=== PATIENT | female | born 1960 | race Caucasian/White ===

== ENCOUNTER 2018-03-14 06:53 | Emergency (ER) | payer BC ==
[~2018-03-14] VITALS: Ht 165.1 cm; Wt 147.9 kg
[~2018-03-14 06:53] MED LIST: ALBU90OI INH; Ativan1 MG PO; BUPR100 PO; CALCIUM-MAGNES1 EAC1 PO; CHOL10002; CYCL10 PO; FERREX 28 TABL1 EACH PO; FLUO20 PO; FURO40 PO; FURO80 PO; K-Dur 20 meq T20 MEQ PO; Klor-Con 1010 MEQ PO; LORA1 PO; Lasix80 MG PO; METO25ER PO; MULVITB PO; NITR100CA PO; Nitrofurantoin100 M1 PO; OMEP20ER PO; Omeprazole20 M1 PO; SERT100 PO; SPACE CHAMBER1 EACH MC; SPIR50 PO; TRAZ100 PO; VALS80 PO; Zithromax250 MG PO
[2018-03-14 07:55] LABS: Calcium, Ionized (POC) 1.01 mmol/L (1.10-1.46); Chloride (POC) 99 mmol/L (98-108); Creatinine (POC) 1.2 mg/dL (0.6-1.0); Glucose (ISTAT POC) 128 mg/dL (70-99); Potassium (POC) 5.4 mmol/L (3.5-5.5); Sodium (POC) 133 mmol/L (135-148); Total CO2 (POC) 28 mmol/L (21-32)
[2018-03-14 08:14] LABS: Source, Urine Clean Catch
[2018-03-14 08:18] LABS: Bilirubin, Urine Neg (Neg); Blood, Urine 2+ (Neg); Glucose Qualitative, Urine Neg (Neg); Ketones, Urine Neg (Neg); Leukocyte Esterase, Urine 3+ (Neg); Nitrite, Urine Pos (Neg); Protein, Urine Neg (Neg); Urobilinogen, Urine 1+ (Normal); pH, Urine 6.5 (5.0-8.0)
[2018-03-14 08:25] LABS: Appearance, Urine Hazy (Clear); Color, Urine Yellow (P-Yellow)
[2018-03-14 08:28] LABS: Bacteria Many /hpf; Squamous Epithelial Cells Few /hpf (Few); White Blood Cells, Urine 50-100 /hpf (0-5)
[2018-03-14] MEDS ORDERED: Prednisone20 MG PO (08:47)
[2018-03-14] MEDS ORDERED: Macrobid 100 M100 MG PO (08:47)
== END 2018-03-14 08:59 | disposition home or self-care (01) ==
LOC: ER 06:53
PROVIDERS: Emergency Medicine
DX: L27.0 Generalized skin eruption due to drugs and medicaments taken internally (principal); N39.0 Urinary tract infection, site not specified; T36.1X5A Adverse effect of cephalosporins and other beta-lactam antibiotics, initial encounter; Z79.899 Other long term (current) drug therapy
CPT/HCPCS: 36415; 80047; 81001; 85014; 87077; 87086; 87186; 99283

== ENCOUNTER → 2019-05-08 | Outpatient (CLI) | payer BC ==
[~2019-05-08] MED LIST changes: +Macrobid 100 M100 MG PO; +Prednisone20 MG PO
== END | disposition home or self-care (01) ==
LOC: LAB 19:47 → LAB SHORT 19:47
DX: N39.0 Urinary tract infection, site not specified (principal)
CPT/HCPCS: 87086

== ENCOUNTER 2024-05-19 19:57 | Inpatient (IN) | payer OTHER ==
[~2024-05-19] VITALS: Ht 160 cm; Wt 157.2 kg
[~2024-05-19 19:57] MED LIST changes: +Enoxaparin 40 MG/0.4 ML SYR SC SCH; -K-Dur 20 meq T20 MEQ PO; +POTA10T PO
[2024-05-19] MEDS ORDERED: Ondansetron HCl 2 MG / ML 2ML Vial IV PRN (20:10)
[2024-05-19 20:57] LABS: Alanine Aminotransfer (ALT/SGP 729 U/L (12-78); Albumin, Blood 3.5 g/dL (3.4-5.0); Albumin/Globulin Ratio 0.8 (0.8-1.8); Alk Phos 251 U/L (50-136); Anion Gap 11 mmol/L (3-11); Aspartate Aminotrans (AST/SGOT 531 U/L (12-37); Bilirubin, Total 4.2 mg/dL (0.1-1.0); Blood Urea Nitrogen 21 mg/dL (8-24); Bun/Creatinine Ratio 16.8 (12.0-20.0); CO2, Blood 27 mmol/L (21-32); Calcium, Blood 9.7 mg/dL (8.5-10.1); Chloride, Blood 103 mmol/L (98-108); Creatinine, Blood 1.25 mg/dL (0.40-1.00); Globulin, Blood 4.4 g/dL (2.2-4.0); Glomerular Filtration Rate 48 (60-); Glucose, Blood 183 mg/dL (70-99); Potassium, Blood 4.1 mmol/L (3.5-5.5); Sodium, Blood 137 mmol/L (136-145); Total Protein, Blood 7.9 g/dL (6.4-8.2)
[2024-05-19 21:20] LABS: BASOPHILS ABSOLUTE AUTO 0.03 K/mm3 (0.00-0.23); BASOPHILS PERCENT AUTO 0 % (0-2); EOSINOPHILS ABSOLUTE AUTO 0.07 K/mm3 (0.00-0.68); EOSINOPHILS PERCENT AUTO 0 % (0-6); Hematocrit 42.5 % (33.0-51.0); Hemoglobin 13.6 g/dL (11.5-16.0); IMMATURE GRAN ABSOLUTE AUTO 0.14 K/mm3 (0.00-0.10); IMMATURE GRAN PERCENT AUTO 1 % (0-1); LYMPHOCYTES ABSOLUTE AUTO 0.76 K/mm3 (0.84-5.20); LYMPHOCYTES PERCENT AUTO 4 % (21-46); MONOCYTES PERCENT AUTO 4 % (4-13); Mean Corpuscular HGB 28.9 pg (26.0-34.0); Mean Corpuscular Volume 90 fL (80-100); NEUTROPHILS ABSOLUTE AUTO 17.85 K/mm3 (1.96-9.15); NEUTROPHILS PERCENT AUTO 91 % (41-73); Platelet Count 354 K/mm3 (150-400); RDW Coefficient Variation 14.3 % (11.7-14.2); RDW Standard Deviation 47.6 fL (35.1-46.3); Red Blood Cell Count 4.71 M/mm3 (3.80-5.20); White Blood Cell Count 19.65 K/mm3 (4.00-11.30)
[2024-05-19] MEDS ORDERED: MetroNIDAZOLE 500MG/NS 100 ml 100 ML IV ONE (22:05)
[2024-05-19] MEDS ORDERED: CefTRIAXone Sodium 2,000 MG in NS 50 ML IV ONE (22:05)
[2024-05-19] MEDS ORDERED: NS 1,000 ML IV SCH (22:05)
[2024-05-19] MEDS ORDERED: FentaNYL Citrate 50 MCG/ML 2 ML Injection IV ONE (22:15)
[2024-05-19 23:52] LABS: Source, Urine Clean Catch
[2024-05-19] MEDS ORDERED: HYDROmorphone HCl/Pf 1MG SYR IV ONE (23:55)
[2024-05-19 23:59] LABS: Bilirubin, Urine Neg (Neg); Blood, Urine 1+ (Neg); Glucose Qualitative, Urine Neg (Neg); Ketones, Urine Neg (Neg); Leukocyte Esterase, Urine 3+ (Neg); Nitrite, Urine Pos (Neg); Protein, Urine 1+ (Neg); Urobilinogen, Urine NORM (Normal); pH, Urine 6.5 (5.0-8.0)
[2024-05-20] VITALS (7 sets, daily range): BP systolic 100–181; BP diastolic 57–89
[2024-05-20] MEDS ORDERED: Ondansetron HCl 2 MG / ML 2ML Vial IV PRN ×2 (00:05→08:25)
[2024-05-20] MEDS ORDERED: NS 1,000 ML IV ONE (00:05)
[2024-05-20] MEDS ORDERED: FentaNYL Citrate 50 MCG/ML 2 ML Injection IV PRN ×2 (00:05→05:45)
[2024-05-20 00:24] LABS: Appearance, Urine Hazy (Clear); Color, Urine Yellow (P-Yellow)
[2024-05-20 00:25] LABS: Bacteria Mod /hpf; Red Blood Cells, Urine 0-2 /hpf (0-2); Squamous Epithelial Cells Many /hpf (Few); White Blood Cells, Urine 25-50 /hpf (0-5)
[2024-05-20] MEDS ORDERED: Ampicillin Sod/Sulbactam Sod 3 GM in NS 100 ML IV SCH (00:43)
[2024-05-20] MEDS ORDERED: TORSE20 PO (02:49)
[2024-05-20] MEDS ORDERED: NIFE30ER PO (02:50)
[2024-05-20] MEDS ORDERED: LOSARTAN-HCTZ1 EACH PO (02:51)
[2024-05-20] MEDS ORDERED: METF500 (02:52)
--- NOTE | 2024-05-20 04:57 | NUR ---
SHIFT SUMMARY - NO ACUTE CHANGES SINCE ADMIT TONIGHT. 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 PT WAS AMBULATORY WITH SBA TO BRP X1 LAST NOC. PT MEDICATED WITH FENTANYL AND ZOFRAN, BOTH WITH GOOD RELIEF. PT IS CURRENTLY SLEEPING. SPOKE TO DR. MICHELLE AND CPAP/BIPAP ORDER RECEIVED. RESPIRATIONS EVEN AND UNLABORED. CALL LIGHT WITHIN REACH. PT IS NPO. IV FLUIDS INFUSING WITHOUT COMPLICATIONS. BED ALARM ON FOR PT SAFETY. WILL CONTINUE TO MONITOR UNTIL AM SHIFT CHANGE.
[2024-05-20] MEDS ORDERED: Vancomycin HCL 750 MG in NS 250 ML IV ONE (05:50)
[2024-05-20 06:27] LABS: International Normalized Ratio 1.02; Prothrombin Time Results 10.9 Sec (9.7-11.5)
[2024-05-20 06:49] LABS: CHOL/HDL RATIO 3.9; Cholesterol 170 mg/dL (50-200); HDL Cholesterol 44 mg/dL (>39); LDL/HDL RATIO 2.6; Low Density Lipoprotein Chol 114 mg/dL (0-110); Triglycerides 61 mg/dL (30-160); Very Low Density Lipoprot Chol 12 mg/dL (6-32)
--- NOTE | 2024-05-20 07:23 | NUR ---
PHYSICIAN CONTACT DR. MOISE NOTIFIED THAT PT IS QUITE NAUSEOUS. NO VOMITING AT THIS TIME. CURRENT ZOFRAN ORDER IS Q6H. REQUESTING Q4H. DR. MOISE STATED SHE WILL BE UP SOON TO SEE THE PATIENT AND WILL PLACE ORDERS. ALSO NOTIFIED THAT PAIN IS NOT MANAGED WELL THE PATIENT WOULD LIKE.
[2024-05-20] MEDS ORDERED: Lactated Ringer's 1,000 ML IV SCH (07:45)
[2024-05-20] MEDS ORDERED: HydrALAZINE HCl 20 MG / ML 1ML Vial IV PRN (07:45)
[2024-05-20] MEDS ORDERED: HYDROmorphone HCl/Pf 1MG SYR IV PRN ×2 (08:50→09:20)
[2024-05-20] MEDS ORDERED: NIFEdipine 30 MG TabCR PO SCH (09:00)
[2024-05-20 09:18] LABS: BASOPHILS ABSOLUTE AUTO 0.06 K/mm3 (0.00-0.23); BASOPHILS PERCENT AUTO 0 % (0-2); EOSINOPHILS ABSOLUTE AUTO 0.15 K/mm3 (0.00-0.68); EOSINOPHILS PERCENT AUTO 1 % (0-6); Hematocrit 38.6 % (33.0-51.0); Hemoglobin 12.4 g/dL (11.5-16.0); IMMATURE GRAN ABSOLUTE AUTO 0.12 K/mm3 (0.00-0.10); IMMATURE GRAN PERCENT AUTO 1 % (0-1); LYMPHOCYTES ABSOLUTE AUTO 0.86 K/mm3 (0.84-5.20); LYMPHOCYTES PERCENT AUTO 4 % (21-46); MONOCYTES ABSOLUTE AUTO 0.94 K/mm3 (0.16-1.47); MONOCYTES PERCENT AUTO 5 % (4-13); Mean Corpuscular HGB 29.3 pg (26.0-34.0); Mean Corpuscular HGB Conc 32.1 g/dL (31.5-36.5); Mean Corpuscular Volume 91 fL (80-100); Mean Platelet Volume 9.6 fL (9.1-12.4); NEUTROPHILS ABSOLUTE AUTO 17.48 K/mm3 (1.96-9.15); NEUTROPHILS PERCENT AUTO 89 % (41-73); Platelet Count 302 K/mm3 (150-400); RDW Coefficient Variation 14.6 % (11.7-14.2); RDW Standard Deviation 48.8 fL (35.1-46.3); Red Blood Cell Count 4.23 M/mm3 (3.80-5.20); White Blood Cell Count 19.61 K/mm3 (4.00-11.30)
[2024-05-20 09:50] LABS: Albumin/Globulin Ratio 0.8 (0.8-1.8); Bilirubin, Total 3.8 mg/dL (0.1-1.0); Bun/Creatinine Ratio 15.4 (12.0-20.0); Calcium, Blood 8.3 mg/dL (8.5-10.1); Creatinine, Blood 1.17 mg/dL (0.40-1.00); Potassium, Blood 3.4 mmol/L (3.5-5.5)
[2024-05-20] MEDS ORDERED: NS 250 ML IV PRN (10:10)
[2024-05-20] MEDS ORDERED: OxyCODONE 5 mg/Acetamin 325 mg TABLET PO PRN (16:00)
[2024-05-20] MEDS ORDERED: Polyethylene Glycol 3350 17 gm PO PRN (16:00)
[2024-05-20] MEDS ORDERED: OxyCODONE 5 mg/Acetamin 325 mg TABLET PO ONE (16:00)
[2024-05-20] MEDS ORDERED: Docusate Sodium/Senna 1 Tab PO PRN (16:05)
--- NOTE | 2024-05-20 17:37 | NUR ---
SHIFT SUMMARY PT IN SIGNIFICANT PAIN THIS AM, SEE EARLIER NOTES. PAIN MEDS CHANGED TO DILADID FROM FENTANYL WITH SIGNIFICANT PAIN RELIEF FROM THAT. PERCOCET ADDED TO REGIMEN THIS AFTERNOON TO FURTHER HELP WITH PAIN CONTROL. FIRST DOSE GIVEN. PT EDUCATED THAT IT IS TO BE USED TO HELP DECREASE THE NEED FOR IV MEDS. PT AGREEABLE TO PLAN. DR. AWAD IN TO SEE THE PATIENT. TENTATIVE ROBOTIC YULIYA PLANNED FOR WEDNESDAY. PT TOLERATING ICE CHIPS WELL TODAY. ADVANCED TO CLEAR LIQUID DIET. PT STATES THIS IS CAUSING A LITTLE PAIN FOR HER, EDUCATED TO GO BACK TO ICE CHIPS AND TAKE IT SLOW FOR NOW. PT VOIDING WELL. ORANGE URINE. NO OTHER ACUTE CHANGES IN ASSESSMENT AT THIS TIME. VS REVIEWED. MEDICATED WITH HYDRALAZINE ONCE THIS AM FOR HTN. PT RESTING IN BED. VISITING WITH FAMILY.
[2024-05-20] MEDS ORDERED: TraZODone HCl 100 MG Tab PO SCH (21:00)
[2024-05-21 03:26] VITALS: BP 131/73
--- NOTE | 2024-05-21 04:46 | NUR ---
SHIFT SUMMARY CARA WAS ALERT AND FULLY ORIENTED ON ASSESSMENT. PT PAIN MANAGED MODERATELY WELL WITH CURRENT MEDICATIONS. PT SBA TO BR. PT HOME CPAP SET UP BY RT, W/ BLEED IN TO MAINTAIN O2 SATS GREATER THAN 90. NO ACUTE EVENTS. PT RESTING
[2024-05-21 05:57] LABS: BASOPHILS ABSOLUTE AUTO 0.08 K/mm3 (0.00-0.23); BASOPHILS PERCENT AUTO 0 % (0-2); EOSINOPHILS ABSOLUTE AUTO 0.28 K/mm3 (0.00-0.68); EOSINOPHILS PERCENT AUTO 1 % (0-6); Hematocrit 36.3 % (33.0-51.0); Hemoglobin 11.4 g/dL (11.5-16.0); IMMATURE GRAN ABSOLUTE AUTO 0.28 K/mm3 (0.00-0.10); IMMATURE GRAN PERCENT AUTO 1 % (0-1); LYMPHOCYTES ABSOLUTE AUTO 0.92 K/mm3 (0.84-5.20); LYMPHOCYTES PERCENT AUTO 4 % (21-46); MONOCYTES ABSOLUTE AUTO 1.66 K/mm3 (0.16-1.47); MONOCYTES PERCENT AUTO 7 % (4-13); Mean Corpuscular HGB 28.9 pg (26.0-34.0); Mean Corpuscular HGB Conc 31.4 g/dL (31.5-36.5); Mean Corpuscular Volume 92 fL (80-100); Mean Platelet Volume 9.4 fL (9.1-12.4); NEUTROPHILS ABSOLUTE AUTO 22.32 K/mm3 (1.96-9.15); NEUTROPHILS PERCENT AUTO 87 % (41-73); Platelet Count 265 K/mm3 (150-400); RDW Coefficient Variation 14.9 % (11.7-14.2); RDW Standard Deviation 51.2 fL (35.1-46.3); Red Blood Cell Count 3.94 M/mm3 (3.80-5.20); White Blood Cell Count 25.54 K/mm3 (4.00-11.30)
[2024-05-21 06:20] LABS: Albumin, Blood 2.7 g/dL (3.4-5.0); Albumin/Globulin Ratio 0.7 (0.8-1.8); Bun/Creatinine Ratio 14.4 (12.0-20.0); Calcium, Blood 7.7 mg/dL (8.5-10.1); Creatinine, Blood 1.04 mg/dL (0.40-1.00); Globulin, Blood 3.8 g/dL (2.2-4.0); Potassium, Blood 3.5 mmol/L (3.5-5.5); Total Protein, Blood 6.5 g/dL (6.4-8.2)
[2024-05-21 07:01] VITALS: BP 123/73
[2024-05-21] MEDS ORDERED: Lactated Ringer's 1,000 ML IV SCH ×2 (10:10→13:00)
--- NOTE | 2024-05-21 11:38 | NUR ---
PHYSICIAN CONTACT DR. MOISE NOTIFIED THAT PT IS STILL VOMITING BILE. ZOFRAN GAVE LITTLE RELIEF. PLAN TO DC ZOFRAN AND START REGLAN.
[2024-05-21] MEDS ORDERED: Metoclopramide HCl 5MG / ML 2ML Vial IV ONE (12:00)
[2024-05-21] MEDS ORDERED: Metoclopramide HCl 10 MG Tab PO PRN (12:00)
[2024-05-21] MEDS ORDERED: Metoclopramide HCl 10 MG Tab PO ONE (12:00)
[2024-05-21] MEDS ORDERED: Metoclopramide HCl 5MG / ML 2ML Vial IV PRN (13:40)
[2024-05-21 15:53] VITALS: BP 149/76
--- NOTE | 2024-05-21 18:30 | NUR ---
SHIFT SUMMARY PT MEDICATED WITH PERCOCET ONCE THIS AM. SHORTLY AFTER BECAME VERY NAUSEOUS AND STARTED VOMITING GREEN BILE. ZOFRAN GAVE LITTLE RELIEF. MEDS CHANGED PER MD TO REGLAN, THIS SEEMS TO HAVE STOPPED THE VOMITING AND OVERALL LESSENED PTS NAUSEA. SEE EMAR FOR EMAIL MARKETING INTERN. DILADID GIVEN APPROX EVERY 3 HOURS ORDERED. UNSURE IF INCREASE IN ABD PAIN IS FROM VOMITING OR NOT. PT UP TO BATHROOM TODAY. UNABLE TO HAVE A BM, BUT IS PASSING GAS T/O SHIFT. PT UNABLE TO KEEP ANOTHER DOSE OF STOOL SOFTENERS DOWN AT THIS TIME. FLUIDS RESTARTED. LR RUNNING AT 200ML/HR CURRENTLY. TELE DCED TODAY. NO OTHER ACUTE CHANGES IN ASSESSMENT AT THIS TIME. VS REVIEWED. CALL LIGHT IN REACH. CPAP IN PLACE. CONT PULSE OX IN PLACE. PT APPEARS TO BE SLEEPING AT THIS TIME.
[2024-05-21 19:10] VITALS: BP 180/90
[2024-05-21 20:00] VITALS: BP 170/77
[2024-05-22] VITALS (7 sets, daily range): BP systolic 124–193; BP diastolic 84–104
--- NOTE | 2024-05-22 05:37 | NUR ---
END OF SHIFT SUMMARY PT A&OX4. CONTINUES TO C/O ABD PAIN REQ DILAUDID Q3. PT HAS NOT TOLERATED LIQUIDS, C/O NAUSEA AFTER 1 ICE CHIP. REGLAN EFFECTIVE. NO NEW EVENTS OVERNIGHT.
[2024-05-22 07:32] LABS: Hematocrit 39.2 % (33.0-51.0); Hemoglobin 12.4 g/dL (11.5-16.0); Mean Corpuscular HGB 29.5 pg (26.0-34.0); Mean Corpuscular HGB Conc 31.6 g/dL (31.5-36.5); Mean Corpuscular Volume 93 fL (80-100); NRBC ABSOLUTE 0.02 K/mm3 (0.00-0.02); NRBC Auto 0.1 /100 WBC (0.0-0.2); Platelet Count 292 K/mm3 (150-400); RDW Standard Deviation 51.3 fL (35.1-46.3); White Blood Cell Count 37.74 K/mm3 (4.00-11.30)
[2024-05-22 07:48] LABS: Albumin, Blood 2.8 g/dL (3.4-5.0); Albumin/Globulin Ratio 0.6 (0.8-1.8); Bilirubin, Total 1.5 mg/dL (0.1-1.0); Bun/Creatinine Ratio 19.9 (12.0-20.0); Calcium, Blood 8.1 mg/dL (8.5-10.1); Creatinine, Blood 0.8 mg/dL (0.40-1.00); Globulin, Blood 4.5 g/dL (2.2-4.0); Potassium, Blood 3.2 mmol/L (3.5-5.5); Total Protein, Blood 7.3 g/dL (6.4-8.2)
[2024-05-22] MEDS ORDERED: Meropenem 2,000 MG in NS 250 ML IV SCH (08:00)
[2024-05-22] MEDS ORDERED: HYDROmorphone HCl/Pf 1MG SYR IV PRN ×2 (08:45)
[2024-05-22] MEDS ORDERED: Potassium Chloride 40 MEQ in NS 250 ML IV STA (08:49)
[2024-05-22] MEDS ORDERED: Losartan/HCTZ 50-12.5 TAB PO SCH (16:00)
[2024-05-22] MEDS ORDERED: Lactated Ringer's 1,000 ML IV SCH (16:10)
--- NOTE | 2024-05-22 19:18 | NUR ---
PATIENT A/O X4, UP WITH SBA TO RESTROOM. 2LO2 TO MAINTAIN SATS, CPAP AT NOC. BACK PAIN BETTER CONTROLLED WITH DILAUDID Q2 HOURS. REGLAN GIVEN TO CONTROL NAUSEA, NO EPISODES OF EMESIS THIS SHIFT. CLEAR LIQUID DIET, NPO AT MIDNIGHT TONIGHT FOR LAP YULIYA TOMORROW. POWERGLIDE PLACED TODAY TO CHELI, LR INFUSING AT 100ML/HR. HYDRALAZINE GIVEN TO CONTROL B/P AND HOME B/P MEDS RESTARTED TODAY. PATIENT PLEASANT AND COOPERATIVE WITH CARE.
[2024-05-22] MEDS ORDERED: Lactobacil 2-S.Thermo-Bifido 1 1 Cap PO SCH (21:00)
[2024-05-23] VITALS (15 sets, daily range): BP systolic 151–195; BP diastolic 53–115
--- NOTE | 2024-05-23 04:35 | NUR ---
NOC SHIFT SUMMARY PT HAS BEEN NPO SINCE MIDNIGHT. HAS IVF RUNNING. SHE IS VERY PAINFUL BUT GETS ADEQUATE PAIN RELIEF FROM PAIN MEDICATIONS TEMPORARILY. PT SAYS THE REGLAN HELPS WITH HER NAUSEA. ANTICIPATING SUGERY TODAY. CALL LIGHT WITHIN REACH.
[2024-05-23 06:16] LABS: BASOPHILS ABSOLUTE AUTO 0.09 K/mm3 (0.00-0.23); BASOPHILS PERCENT AUTO 0 % (0-2); EOSINOPHILS ABSOLUTE AUTO 0.01 K/mm3 (0.00-0.68); EOSINOPHILS PERCENT AUTO 0 % (0-6); Hematocrit 33.3 % (33.0-51.0); Hemoglobin 10.6 g/dL (11.5-16.0); IMMATURE GRAN ABSOLUTE AUTO 0.69 K/mm3 (0.00-0.10); IMMATURE GRAN PERCENT AUTO 3 % (0-1); LYMPHOCYTES ABSOLUTE AUTO 1.43 K/mm3 (0.84-5.20); LYMPHOCYTES PERCENT AUTO 6 % (21-46); MONOCYTES PERCENT AUTO 6 % (4-13); Mean Corpuscular HGB 29.6 pg (26.0-34.0); Mean Corpuscular HGB Conc 31.8 g/dL (31.5-36.5); Mean Corpuscular Volume 93 fL (80-100); Mean Platelet Volume 10.1 fL (9.1-12.4); NEUTROPHILS ABSOLUTE AUTO 20.25 K/mm3 (1.96-9.15); NEUTROPHILS PERCENT AUTO 85 % (41-73); NRBC ABSOLUTE 0.02 K/mm3 (0.00-0.02); NRBC Auto 0.1 /100 WBC (0.0-0.2); Platelet Count 239 K/mm3 (150-400); RDW Coefficient Variation 15.2 % (11.7-14.2); RDW Standard Deviation 51.9 fL (35.1-46.3); Red Blood Cell Count 3.58 M/mm3 (3.80-5.20); White Blood Cell Count 23.87 K/mm3 (4.00-11.30)
[2024-05-23 06:35] LABS: Albumin, Blood 2.3 g/dL (3.4-5.0); Albumin/Globulin Ratio 0.6 (0.8-1.8); Bilirubin, Total 0.9 mg/dL (0.1-1.0); Bun/Creatinine Ratio 19.1 (12.0-20.0); Creatinine, Blood 0.79 mg/dL (0.40-1.00); Magnesium, Blood 2.3 mg/dL (1.6-2.4); Potassium, Blood 3.2 mmol/L (3.5-5.5); Total Protein, Blood 6.3 g/dL (6.4-8.2)
[2024-05-23 07:01] LABS: BAND PERCENT MAN 3 % (0-8); BASOPHILS PERCENT MAN 0 % (0-2); EOSINOPHILS PERCENT MAN 0 % (0-6); LYMPHOCYTES ABSOLUTE MAN 1.67 K/mm3 (0.84-5.20); LYMPHOCYTES PERCENT MAN 7 % (21-46); METAMYELOCYTE ABSOLUTE MAN 0.23 K/mm3 (0.00-0.00); METAMYELOCYTE PERCENT MAN 1 % (0-0); MONOCYTES ABSOLUTE MAN 0.71 K/mm3 (0.16-1.47); MONOCYTES PERCENT MAN 3 % (4-13); NEUTROPHILS ABSOLUTE MAN 21.24 K/mm3 (1.96-9.15); SEG NEUTROPHILS PERCENT MAN 86 % (41-73); TOTAL CELLS COUNTED 100
[2024-05-23] MEDS ORDERED: Potassium Chloride 40 MEQ in NS 250 ML IV STA (07:04)
[2024-05-23] MEDS ORDERED: Potassium Chloride 20 MEQ TabCR PO ONE (07:55)
[2024-05-23] MEDS ORDERED: Losartan/HCTZ 50-12.5 TAB PO SCH (09:00)
[2024-05-23] MEDS ORDERED: Indocyanine Green 25 MG Vial IV ONE (09:00)
[2024-05-23] MEDS ORDERED: Lactated Ringer's 1,000 ML IV SCH (11:20)
[2024-05-23] MEDS ORDERED: Bupivacaine 0.5% HCl 5 MG/ML 30MLVIAL ONE (11:29)
--- NOTE | 2024-05-23 11:43 | NUR ---
PT HERE VIA [facility] FOR ROBOTIC LAP YULIYA. PT WAS SOB GETTING INTO BED, 02 93% ON RA, DECLINES 02 History, Chart, Medications and Allergies reviewed before start of procedure.Pre-Op teaching done. Pt verbalizes understanding. Patient confirms NPO status and agrees with scheduled surgery.
[2024-05-23] MEDS ORDERED: propofoL 40 ML IV ONE (12:16)
[2024-05-23] MEDS ORDERED: FentaNYL Citrate 50 MCG/ML 2 ML Injection ONE (12:17)
[2024-05-23] MEDS ORDERED: HYDROmorphone HCl/Pf 1MG SYR ONE ×2 (12:44→14:34)
[2024-05-23] MEDS ORDERED: Rocuronium Bromide 10 MG/ML 5ML Injection IV ONE (12:44)
--- NOTE | 2024-05-23 12:56 | NUR ---
05/23/24 1256 Delores Mack NEW IV STARTED IN LEFT FOREARM 20 GAUGE, POSITIVE BLOOD RETURN, FLUSHED WITH 10MLS OF NORMAL SALINE. IV SECURED WITH TEGADERM AND TAPE
[2024-05-23] MEDS ORDERED: Metoclopramide HCl 5MG / ML 2ML Vial ONE (13:38)
[2024-05-23] MEDS ORDERED: Ondansetron HCl 2 MG / ML 2ML Vial ONE (13:38)
[2024-05-23] MEDS ORDERED: Phenylephrine HCl 100 MCG/ML-NS 10MLSYR (1MG/10ML) ONE (13:40)
[2024-05-23] MEDS ORDERED: Sugammadex Sodium 200 MG/2ML SDV (100 MG/ML) ONE (13:48)
[2024-05-23] MEDS ORDERED: Labetalol HCL 5 MG/ML 4ML Injection (Single Dose) ONE (14:20)
--- NOTE | 2024-05-23 15:10 | NUR ---
PATIENT ARRIVED BACK FROM PACU AFTER LAP YULIYA. REPORTS SHE IS FEELING MUCH BETTER, PAIN IS 6/10 WHICH IS TOLERABLE. 4 LAP SITES TO ABDOMEN WELL APPROXIMATED WITH SKIN ADHESIVE. VSS, B/P IMPROVED AFTER LABETALOL GIVEN. 3LO2 TO MAINTAIN SATS. BED ALARM SET FOR SAFETY. FAMILY AT BEDSIDE.
[2024-05-24] MEDS ORDERED: NS 0 ML IV ONE (00:22)
[2024-05-24 00:29] VITALS: BP 162/88
--- NOTE | 2024-05-24 04:50 | NUR ---
NOC SHIFT SUMMARY PT STILL HAS SIGNIFICANT PANCREATITIS RELATED PAIN BUT THINKS ITS BETTER THAN BEFORE SURGERY. HER NAUSEA IS MUCH BETTER LONG SHE DOESNT EAT ANYTHING. SHE DID HAVE ONE NAUSEA EPISODE BECAUSE SHE TOOK ONE BITE OF JELLO. SHE CAN TOLERATE WATER AND ICE JUST FINE. 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 PT WORE 2-3 L OF OXYGEN WITH SLEEP FOR HER SLEEP APNEA. FALL PRECAUTIONS IN PLACE AND CALL LIGHT WITHIN REACH.
[2024-05-24 05:30] VITALS: BP 152/80
[2024-05-24 05:38] LABS: BASOPHILS ABSOLUTE AUTO 0.07 K/mm3 (0.00-0.23); BASOPHILS PERCENT AUTO 0 % (0-2); EOSINOPHILS ABSOLUTE AUTO 0.02 K/mm3 (0.00-0.68); EOSINOPHILS PERCENT AUTO 0 % (0-6); Hematocrit 32.8 % (33.0-51.0); IMMATURE GRAN ABSOLUTE AUTO 0.54 K/mm3 (0.00-0.10); IMMATURE GRAN PERCENT AUTO 3 % (0-1); LYMPHOCYTES ABSOLUTE AUTO 1.69 K/mm3 (0.84-5.20); LYMPHOCYTES PERCENT AUTO 9 % (21-46); MONOCYTES ABSOLUTE AUTO 1.37 K/mm3 (0.16-1.47); MONOCYTES PERCENT AUTO 8 % (4-13); Mean Corpuscular HGB 28.7 pg (26.0-34.0); Mean Corpuscular HGB Conc 30.5 g/dL (31.5-36.5); Mean Corpuscular Volume 94 fL (80-100); Mean Platelet Volume 9.6 fL (9.1-12.4); NEUTROPHILS ABSOLUTE AUTO 14.46 K/mm3 (1.96-9.15); NEUTROPHILS PERCENT AUTO 80 % (41-73); NRBC ABSOLUTE 0.02 K/mm3 (0.00-0.02); NRBC Auto 0.1 /100 WBC (0.0-0.2); Platelet Count 236 K/mm3 (150-400); RDW Coefficient Variation 15.5 % (11.7-14.2); RDW Standard Deviation 53.8 fL (35.1-46.3); Red Blood Cell Count 3.48 M/mm3 (3.80-5.20); White Blood Cell Count 18.15 K/mm3 (4.00-11.30)
[2024-05-24 05:58] LABS: Albumin, Blood 2.2 g/dL (3.4-5.0); Albumin/Globulin Ratio 0.6 (0.8-1.8); Bilirubin, Total 0.6 mg/dL (0.1-1.0); Bun/Creatinine Ratio 20.4 (12.0-20.0); Calcium, Blood 7.7 mg/dL (8.5-10.1); Creatinine, Blood 0.74 mg/dL (0.40-1.00); Potassium, Blood 3.4 mmol/L (3.5-5.5); Total Protein, Blood 6.2 g/dL (6.4-8.2)
[2024-05-24] MEDS ORDERED: Potassium Chloride 20 MEQ TabCR PO ONE (06:45)
[2024-05-24 07:56] VITALS: BP 154/68
[2024-05-24] MEDS ORDERED: HYDROmorphone HCl/Pf 1MG SYR IV PRN (08:10)
[2024-05-24] MEDS ORDERED: AMOCLA875 PO (11:48)
[2024-05-24] MEDS ORDERED: METO5A PO (11:50)
[2024-05-24] MEDS ORDERED: Percocet 5-3251 EACH PO (11:51)
[2024-05-24] MEDS ORDERED: VISBIOME 112.51 EACH PO (11:53)
--- NOTE | 2024-05-24 13:11 | NUR ---
PT D/C at 1230, VSS, states 5 out of 10 pain that was well managed with prn precocet, ambublates independently, 4x Lap sited C/D/I, on RA CPAP at night. D/C insturcitons given, IVs removed, safety ensured.
== END 2024-05-24 12:40 | disposition home or self-care (01) | DRG 417 ==
LOC: ER 19:57 → MEDS 19:58 → ENPENDDIS 05-24 11:01 → MEDS 05-24 12:40
PROVIDERS: Emergency Medicine; Student in an Organized Health Care Education/Training Program; Surgery; ADMIT Internal Medicine
PROC: 8E0W4CZ Robotic Assisted Procedure of Trunk Region, Percutaneous Endoscopic Approach (ICD-10-PCS; 2024-05-23)
PROC: BF121ZZ Fluoroscopy of Gallbladder using Low Osmolar Contrast (ICD-10-PCS; 2024-05-23)
PROC: 0FT44ZZ Resection of Gallbladder, Percutaneous Endoscopic Approach (ICD-10-PCS; principal; 2024-05-23 11:30)
DX: K85.10 Biliary acute pancreatitis without necrosis or infection (principal); R65.11 Systemic inflammatory response syndrome (SIRS) of non-infectious origin with acute organ dysfunction; Z68.43 Body mass index [BMI] 50.0-59.9, adult; Z66 Do not resuscitate; I10 Essential (primary) hypertension; E80.6 Other disorders of bilirubin metabolism; N28.9 Disorder of kidney and ureter, unspecified; R74.8 Abnormal levels of other serum enzymes; E66.01 Morbid (severe) obesity due to excess calories; G47.33 Obstructive sleep apnea (adult) (pediatric); E11.9 Type 2 diabetes mellitus without complications; Z98.890 Other specified postprocedural states; Z90.710 Acquired absence of both cervix and uterus; Z79.899 Other long term (current) drug therapy; Z79.84 Long term (current) use of oral hypoglycemic drugs; Z79.01 Long term (current) use of anticoagulants
CPT/HCPCS: 36415; 74177; 76705; 80053; 80061; 81001; 83605; 83690; 83735; 83880; 85025; 85027; 85610; 87040; 87086; 88304; 93005; 93010; 94762; 96365-59; 96367; 96375; 99285-25; A9270; C1751; J0295; J0360; J0696; J1170; J1650; J2185; J2371; J2405; J2704; J2765; J3010; J3480; J7030; J7050; J7120; Q9967

== ENCOUNTER 2024-06-03 05:24 | Emergency (ER) | payer OTHER ==
[~2024-06-03] VITALS: Ht 160 cm; Wt 146.1 kg
[~2024-06-03 05:24] MED LIST changes: +AMOCLA875 PO; -Enoxaparin 40 MG/0.4 ML SYR SC SCH; +LOSARTAN-HCTZ1 EACH PO; +METF500; +METO5A PO; +NIFE30ER PO; +Percocet 5-3251 EACH PO; +TORSE20 PO; +VISBIOME 112.51 EACH PO
[2024-06-03] MEDS ORDERED: Ondansetron HCl 2 MG / ML 2ML Vial IV PRN (06:00)
[2024-06-03 06:25] LABS: BASOPHILS ABSOLUTE AUTO 0.05 K/mm3 (0.00-0.23); BASOPHILS PERCENT AUTO 1 % (0-2); EOSINOPHILS ABSOLUTE AUTO 0.01 K/mm3 (0.00-0.68); EOSINOPHILS PERCENT AUTO 0 % (0-6); Hematocrit 36.6 % (33.0-51.0); Hemoglobin 11.8 g/dL (11.5-16.0); IMMATURE GRAN ABSOLUTE AUTO 0.06 K/mm3 (0.00-0.10); IMMATURE GRAN PERCENT AUTO 1 % (0-1); LYMPHOCYTES ABSOLUTE AUTO 1.85 K/mm3 (0.84-5.20); LYMPHOCYTES PERCENT AUTO 21 % (21-46); MONOCYTES ABSOLUTE AUTO 0.77 K/mm3 (0.16-1.47); MONOCYTES PERCENT AUTO 9 % (4-13); Mean Corpuscular HGB 28.6 pg (26.0-34.0); Mean Corpuscular HGB Conc 32.2 g/dL (31.5-36.5); Mean Corpuscular Volume 89 fL (80-100); Mean Platelet Volume 9.4 fL (9.1-12.4); NEUTROPHILS ABSOLUTE AUTO 6.05 K/mm3 (1.96-9.15); NEUTROPHILS PERCENT AUTO 69 % (41-73); Platelet Count 525 K/mm3 (150-400); RDW Coefficient Variation 14.3 % (11.7-14.2); Red Blood Cell Count 4.12 M/mm3 (3.80-5.20); White Blood Cell Count 8.79 K/mm3 (4.00-11.30)
[2024-06-03 06:43] LABS: Albumin, Blood 3.2 g/dL (3.4-5.0); Albumin/Globulin Ratio 0.7 (0.8-1.8); Bilirubin, Total 0.6 mg/dL (0.1-1.0); Bun/Creatinine Ratio 29.1 (12.0-20.0); Calcium, Blood 9.5 mg/dL (8.5-10.1); Globulin, Blood 4.5 g/dL (2.2-4.0); Potassium, Blood 3.5 mmol/L (3.5-5.5); Total Protein, Blood 7.7 g/dL (6.4-8.2)
[2024-06-03] MEDS ORDERED: NS 1,000 ML IV SCH (06:50)
[2024-06-03] MEDS ORDERED: ONDA4ODT MM (07:17)
[2024-06-03 07:30] VITALS: BP 154/75
== END 2024-06-03 08:05 | disposition home or self-care (01) ==
LOC: ER 05:24
PROVIDERS: Emergency Medicine
DX: K91.0 Vomiting following gastrointestinal surgery (principal); Y83.8 Other surgical procedures as the cause of abnormal reaction of the patient, or of later complication, without mention of misadventure at the time of the procedure; Z79.899 Other long term (current) drug therapy; Z90.49 Acquired absence of other specified parts of digestive tract
CPT/HCPCS: 80053; 83690; 85025; 96361; 96374; 99283-25; J2405; J7030

== ENCOUNTER 2025-05-10 07:41 | Emergency (ER) | payer OTHER ==
[~2025-05-10] VITALS: Ht 154.9 cm; Wt 140.6 kg
[~2025-05-10 07:41] MED LIST changes: +ONDA4ODT MM
[2025-05-10] MEDS ORDERED: Methocarbamol 500 MG Tab PO ONE (08:15)
[2025-05-10] MEDS ORDERED: Ketorolac Tromethamine 15mg Vial IM ONE (08:15)
[2025-05-10] MEDS ORDERED: Lidocaine 4% 1 Patch TOP ONE (08:15)
[2025-05-10 09:08] VITALS: BP 141/78
== END 2025-05-10 10:53 | disposition home or self-care (01) ==
LOC: ER 07:41
DX: M16.12 Unilateral primary osteoarthritis, left hip (principal); Z79.899 Other long term (current) drug therapy
CPT/HCPCS: 73502; 96372; 99283-25; A9270; J1885